=== PATIENT | male | born 1960 | race Caucasian/White ===

== ENCOUNTER → 2020-12-18 03:37 | Outpatient (CLI) | payer OTHER, SELFPAY ==
[2020-12-20 13:00] LABS: SARS-CoV-2 RNA PCR Negative
== END ==
PROVIDERS: PCP Family Medicine; Visit Provider Internal Medicine Gastroenterology
DX: Z01.812 Encounter for preprocedural laboratory examination (principal); Z20.822 Contact with and (suspected) exposure to COVID-19
CPT/HCPCS: C9803; U0003; U0005

== ENCOUNTER 2020-12-21 00:51 | Day surgery (SDC) | payer OTHER, SELFPAY ==
[2020-11-02 15:04] VITALS: BMI 25.7
[2020-12-21 07:21] VITALS: BP 121/84; PULSE 79; RESP 15; TEMP 36.1; O2SAT 99; BMI 25.6
[2020-12-21] MEDS: LACTATED RINGERS 1,000 ML 150 ML IV CONT (07:25)
--- NOTE | 2020-12-21 07:53 | WPDGICN ---
GI Consult Note Consult date/time: 12/21/20 07:53 HPI: Reason for visit colonoscopy. This very pleasant gentleman seen in consultation at the request the primary physician. Impression: Screening and surveillance colonoscopy. The patient has a history of colon polyps. HLD. Anxiety. Recommendation: Colonoscopy. History: This very pleasant gentleman's being evaluated for screening and surveillance colonoscopy. He has a history of colon polyps. GI review systems is negative. Physical examination: General: very pleasant patient in no acute distress. HEENT: Head was normocephalic sclerae is clear mouth without masses neck was supple. Heart: Rate rhythm regular without S3 or S4. Lungs: CTA. Abdomen: Soft with no guarding or rigidity. Bowel sounds were active. Neurologic: Cranial nerves 2 through 12 intact. No focal defects. No clonus. Musculoskeletal system: Revealed no joint tenderness or swelling no muscle atrophy. Extremities: Reveal no significant edema. Skin: Warm and dry with normal turgor. Mental status: intact. Patient is alert and oriented. Review of Systems Review of Systems: All systems reviewed & are unremarkable except as noted in HPI and below PMFSH Past Medical History Medical History Anxiety Hemorrhoids Hypercholesterolemia Vitamin D deficiency Surgical History Surgical History History of left knee replacement (~2007) History of total right knee replacement (~2011) Family History Family History Sibling Diabetes mellitus Father CHF (congestive heart failure) Hypertension Myocardial infarction Diabetes mellitus Heart disease Mother Breast cancer Social History Social History Smoking status: Current some day smoker Tobacco type: cigars (2) Alcohol intake: current Drinks per week: 7 Substance use: never Substance use type: does not use Living arrangements: with family Gender identity (if verbalized by the patient): Male Spiritual care concerns: No Meds Home Medications and Allergies Home Medications Medication Instructions Recorded Confirmed Type propranolol 10 mg tablet See Rx Instructions .ROUTE 09/14/20 12/21/20 Rx .COMPLEX #90 tablet Allergies Allergy/AdvReac Type Severity Reaction Status Date / Time No Known Allergies Allergy Verified 12/21/20 07:20 Vital Signs Vital Signs - 24 hr 05/27/21 07:21 Temperature 36.1 C L Pulse Rate 79 Respiratory Rate 15 Blood Pressure 121/84 Pulse Oximetry 99
--- NOTE | 2020-12-21 08:12 | WPDANESEPPF ---
Anes - Initial Pre Proc Eval Procedure: Operation Date: 12/21/20 08:30 Proposed Procedures p Screening Colonoscopy - Shine Bagley DO Date/Time: 12/21/20 08:12 Surgeon: Shine Bagley DO Pre Op Diagnosis: Neoplasm Screening Patient Data Age: 60 Gender: M Height: 5 ft 9 in Weight: 78.8 kg Last Vital Signs Temp 96.9 F L 12/21/20 07:21 Pulse 79 12/21/20 07:21 Resp 15 12/21/20 07:21 BP 121/84 12/21/20 07:21 Pulse Ox 99 12/21/20 07:21 Allergies Allergy/AdvReac Type Severity Reaction Status Date / Time No Known Allergies Allergy Verified 12/21/20 07:20 Home Medications Medication Instructions Recorded Confirmed Type propranolol 10 mg tablet See Rx Instructions .ROUTE 09/14/20 12/21/20 Rx .COMPLEX #90 tablet Patient hx anesthesia problems: none Family hx anesthesia problems: none PMFSH Past Medical History Medical History Anxiety Hemorrhoids Hypercholesterolemia Vitamin D deficiency Surgical History Surgical History History of left knee replacement (~2007) History of total right knee replacement (~2011) Family History Family History Sibling Diabetes mellitus Father CHF (congestive heart failure) Hypertension Myocardial infarction Diabetes mellitus Heart disease Mother Breast cancer Social History Social History Smoking status: Current some day smoker Tobacco type: cigars (2) Alcohol intake: current Drinks per week: 7 Substance use: never Substance use type: does not use Living arrangements: with family Gender identity (if verbalized by the patient): Male Spiritual care concerns: No Anes - Eval Final PreProcedure Day of Procedure 12/21/20 08:12 Patient weight: normal Heart: regular rate and rhythm Lungs: clear to auscultation Airway: Mallampati scale class II Neurological: alert and oriented Last oral intake: >/= 8 hours ASA classification: II Emergent: no Anesthetic plan: proceed Anesthesia type and monitoring: general GIVS and standard monitoring Informed Consent: The patient's anesthetic plan and its attendant risks and benefits were discussed with the patient/family/POA. Questions were solicited and answers provided to the satisfaction of the patient/family/POA.
[2020-12-21 08:49] VITALS: BP 97/51; PULSE 68; RESP 14; O2SAT 99
[2020-12-21 08:59] VITALS: BP 113/75; PULSE 91; RESP 20; O2SAT 100
[2020-12-21 09:09] VITALS: BP 116/91; PULSE 78; RESP 20; O2SAT 100
== END 2020-12-21 09:29 | disposition home or self-care (01) ==
PROVIDERS: PCP Family Medicine; Visit Provider Internal Medicine Gastroenterology
PROC: 0DJD8ZZ Inspection of Lower Intestinal Tract, Via Natural or Artificial Opening Endoscopic (ICD-10-PCS; CPT 45378; principal; 2020-12-21 08:30)
DX: Z12.11 Encounter for screening for malignant neoplasm of colon (principal); F41.9 Anxiety disorder, unspecified; E78.00 Pure hypercholesterolemia, unspecified; E55.9 Vitamin D deficiency, unspecified; K64.9 Unspecified hemorrhoids; F17.290 Nicotine dependence, other tobacco product, uncomplicated
CPT/HCPCS: 45378; J2704; J7120

== ENCOUNTER 2023-04-10 10:16 | Outpatient (CLI) | payer OTHER, SELFPAY ==
--- NOTE | 2023-04-10 10:23 | EST_ITS ---
Patient Info Name: Julio C Wang Age: 62 years : 1960 Gender: Male Ht: 69 in Wt: 170 lbs BSA: 1.95 m2 HR: 63 bpm BP: 127 / 82 mmHg Heart Rhythm: Sinus Rhythm Exam Date: 04/10/2023 10:39 AM Exam Location: [facility] Stress Patient Status: Outpatient Admit Date: 04/10/2023 Staff Ordering Physician: Alek Owusu DO Attending Provider: Alek Owusu DO Exercise Technologist: Karen Reddy CT Exercise Physician: Alek Owusu DO Exam Type: CA stress test treadmill Study Info Indications R07.89 - Other chest pain A treadmill exercise stress test was performed. Summary 1. 1. Negative [place] exercise stress test for ischemic ST changes by ECG criteria. 2. 2. Good functional capacity, achieving 10 METs of workload. 3. 3. Appropriate HR response to exercise. 4. 4. Appropriate HR recovery at 1 minute post exercise. 5. 5. No imaging with stress testing. 6. 6. Patient informed of the above results. Protocol: [place] Stress ECG Details Stage: REST Duration (min): 1 min : 40 sec Speed (mph): 0.0 Grade (%): 0 HR (bpm): 63 SBP (mmHg): 127 DBP (mmHg): 82 METS: --- Stage: REST Duration (min): 16 min : 34 sec Speed (mph): 0.0 Grade (%): 0 HR (bpm): 69 SBP (mmHg): 127 DBP (mmHg): 82 METS: --- Stage: STAGE 1 Duration (min): 1 min : 0 sec Speed (mph): 1.7 Grade (%): 10 HR (bpm): 97 SBP (mmHg): 127 DBP (mmHg): 82 METS: --- Stage: STAGE 1 Duration (min): 2 min : 0 sec Speed (mph): 1.7 Grade (%): 10 HR (bpm): 104 SBP (mmHg): 127 DBP (mmHg): 82 METS: --- Stage: STAGE 1 Duration (min): 3 min : 0 sec Speed (mph): 1.7 Grade (%): 10 HR (bpm): 99 SBP (mmHg): 176 DBP (mmHg): 63 METS: --- Stage: STAGE 2 Duration (min): 1 min : 0 sec Speed (mph): 2.5 Grade (%): 12 HR (bpm): 114 SBP (mmHg): 176 DBP (mmHg): 63 METS: --- Stage: STAGE 2 Duration (min): 2 min : 0 sec Speed (mph): 2.5 Grade (%): 12 HR (bpm): 122 SBP (mmHg): 176 DBP (mmHg): 73 METS: --- Stage: STAGE 2 Duration (min): 3 min : 0 sec Speed (mph): 2.5 Grade (%): 12 HR (bpm): 125 SBP (mmHg): 176 DBP (mmHg): 73 METS: --- Stage: STAGE 3 Duration (min): 1 min : 0 sec Speed (mph): 3.4 Grade (%): 14 HR (bpm): 132 SBP (mmHg): 189 DBP (mmHg): 73 METS: --- Stage: STAGE 3 Duration (min): 2 min : 0 sec Speed (mph): 3.4 Grade (%): 14 HR (bpm): 140 SBP (mmHg): 189 DBP (mmHg): 73 METS: --- Stage: STAGE 3 Duration (min): 2 min : 1 sec Speed (mph): 3.4 Grade (%): 14 HR (bpm): 140 SBP (mmHg): 189 DBP (mmHg): 73 METS: --- Stage: RECOVERY Duration (min): 0 min : 58 sec Speed (mph): 0.0 Grade (%): 0 HR (bpm): 96 SBP (mmHg): 192 DBP (mmHg): 66 METS: --- Stage: RECOVERY Duration (min): 1 min : 58 sec Speed (mph): 0.0 Grade (%): 0 HR (bpm): 72 SBP (mmHg): 192 DBP (mmHg): 66 METS:
== END 2023-04-10 10:17 | disposition home or self-care (01) ==
LOC: ANHCARD 10:17
PROVIDERS: PCP Family Medicine; Visit Provider Internal Medicine Cardiovascular Disease
DX: R07.9 Chest pain, unspecified (principal)
CPT/HCPCS: 93017

== ENCOUNTER 2023-05-20 12:21 | Emergency (ER) | payer OTHER, SELFPAY ==
--- NOTE | ~2023-05-20 | XR_ITS ---
XR hand LT min 3V 05/20/2023 13:11 Indication: Rule out or total injury to left fingers Procedure: 3 views left hand Comparison: No prior studies for comparison. Findings: Study is limited due to overlying external device covering the second, third and fourth dis na phalanges. There is a fracture of the third distal phalanx with displacement. There is possible p artial amputation of the fourth distal phalanx. Recommend repeat examinations following removal of ex ternal soft tissue. Cannot exclude foreign bodies. Impression: 1: Displaced fracture third distal phalanx with possible tuft fracture fourth distal phalanx. Soft ti ssue amputation cannot be excluded. Cannot exclude foreign body. Reviewed, dictated and finalized at location L. Impression: 1: Displaced fracture third distal phalanx with possible tuft fracture fourth d istal phalanx. Soft tissue amputation cannot be excluded. Cannot exclude foreig n body.
[2023-05-20 12:27] VITALS: BP 168/97; PULSE 91; RESP 20; TEMP 36.6; O2SAT 99
--- NOTE | 2023-05-20 12:44 | ED.WOUNDLAC ---
HPI - Wound/Laceration General Chief Complaint: Wound/Laceration <Angela Michele PA-C - Last Filed: 05/22/23 10:06> Stated Complaint: wound <TENNILLE Shea Last Filed: 05/22/23 10:06> Time Seen by Provider: 05/20/23 14:11 <TENNILLE Shea Last Filed: 05/22/23 10:06> Source: patient <TENNILLE Shea Last Filed: 05/22/23 10:06> Mode of arrival: ambulatory <TENNILLE Shea Last Filed: 05/22/23 10:06> Limitations: no limitations <TENNILLE Shea Last Filed: 05/22/23 10:06> History of Present Illness HPI narrative: This is a 62-year-old male that presents to the emergency department for left hand laceration sustained just prior to arrival. Reports lacerations to his left second third and fourth fingers. Reports bleeding and pain to the areas. He is up-to-date on tetanus. Denies decreased range of motion or numbness. <Angela Michele PA-C - Last Filed: 05/22/23 10:06> Related Data Allergies/Adverse Reactions: Allergies Allergy/AdvReac Type Severity Reaction Status Date / Time No Known Allergies Allergy Verified 05/20/23 14:01 <Angela Michele PA-C - Last Filed: 05/22/23 10:06> Review of Systems Review of Systems: CONSTITUTIONAL: Denies fever SKIN: Reports laceration MUSCULOSKELETAL: Reports joint pain, and myalgia. NEUROLOGIC: Denies numbness <Angela Mcihele PA-C - Last Filed: 05/22/23 10:06> All systems reviewed & are unremarkable except as noted in HPI and below <TENNILLE Shea Last Filed: 05/22/23 10:06> [facility] Past Medical History Medical History: Medical History Anxiety Hemorrhoids Hypercholesterolemia RLS (restless legs syndrome) Vitamin D deficiency <Angela Michele PA-C - Last Filed: 05/22/23 10:06> Surgical History Surgical History: Surgical History History of left knee replacement (~2007) History of total right knee replacement (~2011) <TENNILLE Shea Last Filed: 05/22/23 10:06> Family History Family History: Family History Sibling Diabetes mellitus Father CHF (congestive heart failure) Hypertension Myocardial infarction Diabetes mellitus Heart disease Mother Breast cancer <TENNILLE Shea Last Filed: 05/22/23 10:06> Social History Social History: Social History Smoking status: Former smoker (cigars) Tobacco type: cigars Smoking end date: 02/25/22 Alcohol intake: current Drinks per week: 7 Alcohol use details: Beer, [place] Substance use: never Substance use type: does not use Lack of Transportation: No Lack of Food: Never True Current Housing: I Have Housing Concerned About Future Housing: No Difficulty Paying Gas/Electric Bills: No Difficulty Paying for Meds: No Currently Unemployed: No Education: Master's Degree or Higher Difficulty w/ Childcare or Family Care: No Living arrangements: with family Occupation/Education: occupation 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 HEAD: Normocephalic, atraumatic. EYES: EOMI. EXTREMITIES: Normal range of motion. Left second third and fourth fingers with nail avulsions SKIN: Warm, dry, no rash. NEURO: No focal deficits. Alert and oriented x3. PSYCH: Normal mood and affect <Angela Michele PA-C - Last Filed: 05/22/23 10:06> Course Course Emergency Course: 62-year-old male present emerged department fo
--- NOTE | 2023-05-20 12:53 | PC.NURSE ---
Pt states he is an established pt with Dr. Chavez for hand
[2023-05-20] MEDS: LIDOCAINE HCL 1% LOCAL INJ 10 ML VIAL INFILTRATE (15:10)
--- NOTE | 2023-05-20 16:05 | ED.GENADULT ---
HPI - General Adult General Chief complaint: Wound/Laceration Stated complaint: wound Time Seen by Provider: 05/20/23 14:11 Source: patient Mode of arrival: ambulatory Limitations: no limitations History of Present Illness HPI narrative: 62-year-old male presented the emergency department for evaluation of injuries to his left second third and fourth fingers. Related Data Allergies Allergy/AdvReac Type Severity Reaction Status Date / Time No Known Allergies Allergy Verified 05/20/23 14:01 [facility] Past Medical History Medical History Anxiety Hemorrhoids Hypercholesterolemia RLS (restless legs syndrome) Vitamin D deficiency Surgical History Surgical History History of left knee replacement (~2007) History of total right knee replacement (~2011) Family History Family History Sibling Diabetes mellitus Father CHF (congestive heart failure) Hypertension Myocardial infarction Diabetes mellitus Heart disease Mother Breast cancer Social History Social History Smoking status: Former smoker (cigars) Tobacco type: cigars Smoking end date: 02/25/22 Alcohol intake: current Drinks per week: 7 Alcohol use details: Beer, [place] Substance use: never Substance use type: does not use Lack of Transportation: No Lack of Food: Never True Current Housing: I Have Housing Concerned About Future Housing: No Difficulty Paying Gas/Electric Bills: No Difficulty Paying for Meds: No Currently Unemployed: No Education: Master's Degree or Higher Difficulty w/ Childcare or Family Care: No Living arrangements: with family Occupation/Education: occupation 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 Gender identity (if verbalized by the patient): Male Sexual Orientation (if Verbalized by the Patient): Straight or Heterosexual Spiritual care concerns: No Course Vital Signs Vital signs: Vital Signs Temperature 97.9 F 05/20/23 12:27 Pulse Rate 91 05/20/23 12:27 Respiratory Rate 20 05/20/23 12:27 Blood Pressure 168/97 H 05/20/23 12:27 Pulse Oximetry 99 05/20/23 12:27 Oxygen Delivery Room Air 05/20/23 12:27 Temperature 97.9 F 05/20/23 12:27 Pulse Rate 91 05/20/23 12:27 Respiratory Rate 20 05/20/23 12:27 Blood Pressure 168/97 H 05/20/23 12:27 Pulse Oximetry 99 05/20/23 12:27 Oxygen Delivery Room Air 05/20/23 12:27 Medical Decision Making Vital Signs Vital Signs: Vital Signs Temperature 97.9 F 05/20/23 12:27 Pulse Rate 91 05/20/23 12:27 Respiratory Rate 20 05/20/23 12:27 Blood Pressure 168/97 H 05/20/23 12:27 Pulse Oximetry 99 05/20/23 12:27 Oxygen Delivery Room Air 05/20/23 12:27 Temperature 97.9 F 05/20/23 12:27 Pulse Rate 91 05/20/23 12:27 Respiratory Rate 20 05/20/23 12:27 Blood Pressure 168/97 H 05/20/23 12:27 Pulse Oximetry 99 05/20/23 12:27 Oxygen Delivery Room Air 05/20/23 12:27 Discharge Plan Discharge Clinical Impression: Avulsion of fingernail of left hand, Open fracture of tuft of distal phalanx of finger Patient Disposition: Home, Self-Care Condition: Stable Instructions: Antibiotic Form, Laceration (ED), Skin Avulsion (ED) Additional Instructions: Antibiotic as directed until completed. Ibuprofen for pain control and [place] as needed for additional pain control. Continue have close follow-up with Dr. Argueta as scheduled. If you have any worsening symptoms please call or return to the emergency department. Prescriptions: New cephalexin 500 mg capsule 500 mg PO Q8H 7 Days Qty: 21 0RF hydrocodone-acetaminophen 5-325 mg tablet 1 tablet PO Q12H PRN (Reason: pain) Qty: 14 0RF No Action propranolol 10 mg table
[2023-05-20] MEDS: HYDROmorphone HCL INJ (*CRX) 1 MG/ML SYR IM (16:18)
[2023-05-20] MEDS: CEPHALEXIN 500 MG CAPSULE PO (16:19)
[2023-05-20 16:27] VITALS: BP 147/84; PULSE 94; RESP 20; O2SAT 98
== END 2023-05-20 16:28 | disposition home or self-care (01) ==
PROVIDERS: Emergency Provider Emergency Medicine; PCP Family Medicine
DX: S62.635B Displaced fracture of distal phalanx of left ring finger, initial encounter for open fracture (principal); W31.89XA Contact with other specified machinery, initial encounter
CPT/HCPCS: 73130; 96372; 99283; A9270; J1170

== ENCOUNTER 2023-07-27 11:23 | Emergency (ER) | payer OTHER, SELFPAY ==
[2023-07-27 11:44] VITALS: BP 126/92; PULSE 81; RESP 20; TEMP 36.6; O2SAT 98
--- NOTE | 2023-07-27 11:48 | ED.URI ---
HPI - URI/Sore Throat General Chief Complaint: Upper Respiratory Infection Stated Complaint: COUGH/CONGESTION Time Seen by Provider: 07/27/23 11:48 Source: patient Mode of arrival: ambulatory Limitations: no limitations History of Present Illness HPI Narrative: 63-year-old male presents with complaint of cough, runny nose, chest congestion for 3 weeks. Patient states he has tried Mucinex but not consistently taking qnee-tob-afantro medications to treat symptoms. Afebrile. Denies shortness of breath but does report some chest congestion causing chest heaviness. Speaking in full sentences. Has not seen his primary care physician for the symptoms. All systems reviewed and negative except as noted above. Related Data Allergies Allergy/AdvReac Type Severity Reaction Status Date / Time No Known Allergies Allergy Verified 07/27/23 11:49 Review of Systems Review of Systems: CONSTITUTIONAL: Denies fever, chills, or sweats. EYES: Denies visual changes, redness, or discharge. ENT: Reports rhinorrhea. Denies congestion, sore throat, or otalgia. CARDIOVASCULAR: Denies chest pain, palpitations, or edema. RESPIRATORY: Reports cough, chest congestion. Denies dyspnea. GASTROINTESTINAL: Denies abdominal pain, nausea, vomiting, or diarrhea. GENITOURINARY: Denies dysuria or hematuria. SKIN: Denies rash or itching. MUSCULOSKELETAL: Denies back pain, joint pain, or myalgia. NEUROLOGIC: Denies headache, numbness, or weakness. PSYCHIATRIC: Denies anxiety or depression. All other systems reviewed are negative, except as documented in HPI. [facility] Past Medical History Medical History Anxiety Hemorrhoids Hypercholesterolemia RLS (restless legs syndrome) Vitamin D deficiency Surgical History Surgical History History of left knee replacement (~2007) History of total right knee replacement (~2011) Family History Family History Sibling Diabetes mellitus Father CHF (congestive heart failure) Hypertension Myocardial infarction Diabetes mellitus Heart disease Mother Breast cancer Social History Social History Smoking status: Former smoker (cigars) Tobacco type: cigars Smoking end date: 02/25/22 Alcohol intake: current Drinks per week: 7 Alcohol use details: Beer, [place] Substance use: never Substance use type: does not use Lack of Transportation: No Lack of Food: Never True Current Housing: I Have Housing Concerned About Future Housing: No Difficulty Paying Gas/Electric Bills: No Difficulty Paying for Meds: No Currently Unemployed: No Education: Master's Degree or Higher Difficulty w/ Childcare or Family Care: No Living arrangements: with family Occupation/Education: occupation 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 There is no relevant family history pertinent to the presenting complaint. Exam Narrative: GENERAL: This is a well-nourished, well-developed patient, in no apparent distress. HEAD: normocephalic, atraumatic. EYES: PERRL. Sclera clear/white. Vision is grossly intact. EARS: External ears normal, auditory canals clear and without drainage, TMs normal without perforation. Hearing grossly intact. NOSE: External nose normal with no obvious nasal discharge, nares without redness, no rhinorrhea. THROAT: Mucous membranes moist, posterior pharynx clear. NECK: Neck supple, non-tender without lymphadenopathy, masses or thyromegaly. CARDIOVASCULAR: Regular rate and rhythm without
== END 2023-07-27 12:10 | disposition home or self-care (01) ==
PROVIDERS: Emergency Provider Nurse Practitioner Family; PCP Family Medicine
DX: J22 Unspecified acute lower respiratory infection (principal); E55.9 Vitamin D deficiency, unspecified; E78.00 Pure hypercholesterolemia, unspecified; Z96.653 Presence of artificial knee joint, bilateral
CPT/HCPCS: 99213; G0463

== ENCOUNTER 2023-08-29 09:00 | Outpatient (RCR) | payer OTHER, SELFPAY ==
--- NOTE | 2023-08-15 11:55 | OTOPEVAL1 ---
Assessment and note entered by Tong Castro, OTR/Jorge Luis, CHT Evaluation Information 08/15/23 Subjective Information Pt injured his left 2nd, 3rd, and 4th fingers on 05/20/23 with a router. He had a fracture to the 3rd distal phalanx, which was treated conservatively with a splint. He is right handed. He reports residual weakness, pain, and tightness. 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 Difficulties making a tight fist. Reported Pain Level Pain Score - (L) hand 3/10 with strenuous gripping 0/10 at rest Assessment OT Clinical Summary Patient referred to OT with residual left hand stiffness and weakness following an injury ~3 months ago. Today he was issued active/passive ROM and strengthening HEP. After a round of the HEP his hand improved to normal limits with ROM and patient reports feeling a big difference. Plan for 1 follow up session in about 2 weeks to assess readiness for discharge. Plan of Care Interventions Therapeutic Exercise,Manual Therapy,Paraffin OT Services Indicated Yes Treatment Frequency and Follow up in 2 weeks. Duration These treatments will address the objective and functional deficits as defined above. The patient will be advanced safely and appropriately in order for the patient to progress towards his/her prior level of function. Additional exercises will be introduced and as well as a comprehensive home exercise program upon discharge, if needed, ?to ensure carryover of functional gains achieved in the clinic. This treatment plan has been reviewed and agreement upon by the patient.
--- NOTE | 2023-08-29 09:36 | OTOPDC ---
Assessment and note entered by Tong Castro, ASIYA/Jorge Lius, T Discharge Summary 08/29/2023 Diagnosis Stiff fingers left hand Subjective Information Patient has been working on his HEP x2 weeks. He reports that his flexibility temporarily increases and feels that 15 minutes later it goes back to how it was. After seeing his measurements he reports he feels more encouraged that his is making progress. Measurements today: Patient is able to make a composite fist as well as a hook fist with no gaps between the finger tips and the DPC. 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 At the initial eval (08/15/23) Tip to DPC measurements: II: 1.5 cm gap III: 2 cm gap IV: 1.5 cm gap V: 1 cm gap Assessment OT Clinical Summary Patient referred to OT with residual left hand stiffness and weakness following an injury ~3 months ago. He was issued ROM and strengthening HEP x2 weeks ago and presents today for follow up. Patient's ROM and strength have returned to normal limits. He reports residual stiffness for which it was recommend that he continue the HEP. No further skilled OT indicated at this time. D/C OT. Plan of Care OT Services Indicated No
== END 2023-08-29 09:59 | disposition home or self-care (01) ==
LOC: ANHOT 09:00
PROVIDERS: PCP Family Medicine; Visit Provider Plastic Surgery
DX: M25.642 Stiffness of left hand, not elsewhere classified (principal)
CPT/HCPCS: 97110; 97165

== ENCOUNTER 2023-12-18 08:14 | Outpatient (CLI) | payer OTHER, SELFPAY | END 2023-12-18 08:15 | disposition home or self-care (01) | LOC: ANHSURGERY 08:17 | PROVIDERS: PCP Family Medicine; Visit Provider Surgery | DX: K40.90 Unilateral inguinal hernia, without obstruction or gangrene, not specified as recurrent (principal); Z01.818 Encounter for other preprocedural examination | CPT/HCPCS: 36415; 86850; 86900; 86901 ==

== ENCOUNTER 2023-12-24 01:07 | Day surgery (SDC) | payer OTHER, SELFPAY ==
[2023-12-15 11:53] VITALS: BMI 25.9
--- NOTE | 2023-12-15 11:59 | PC.NURSE ---
Report to the Outpatient Waiting Room, entrance under the green pavilion located off [facility], at time _0830_ on date _[id number]_. Planned Procedure Time: _1030_. Time changes happen often and if your time is changed the preop area will call you the afternoon before. - You and your visitor will be asked to self-screen and do not enter if you have any COVID symptoms. - A mask is optional within the hospital at this time. Patients may have clear liquids (water, carbonated beverages, clear teas, apple juice) until 3 hours prior to surgery with a maximum of 20 ounces. - No food from midnight until time of surgery Take the following medications with a SIP of water the morning of surgery: __None DO NOT STOP ANY OF YOUR OTHER PRESCRIPTION MEDICATIONS PRIOR TO SURGERY ?EXCEPT THE FOLLOWING Medications to discontinue per physician __Vitamins and supplements Date to take last eaiw__[phone] Says was told by office to stop meloxicam. Please no make-up, nail kazakh, hairspray, perfume, deodorant, or body powder the day of surgery. No jewelry (including any body piercings) or valuables the day of surgery, leave them at home. Please take a shower or bath the night before, or the morning of, surgery with an antibacterial soap. Wear comfortable, loose fitting clothing. - Jewelry must be removed prior to entering the operating room. Rings and piercings that are not removed may be cut off. - The hospital will not accept responsibility for valuables. - Please leave all valuables, including medications, at home the day of surgery. If you are going home after surgery, a licensed full service vending driver must drive you home. - NO public transportation without another adult if you receive anesthesia. - We recommend that an adult stay with you for 24 hours following discharge. - We also recommend that you do not drive, make important decision, drink alcoholic beverages, or take any drugs that were not prescribed by your health care provider for at least 24 hours after your discharge time. Follow any additional instructions given to you from your surgeon. If you or anyone in your household have experienced Covid symptoms in the past week, please notify your surgeon or the nurse liaison at the phone number below for possible testing. Telephone instructions given to __Joe__and asked if any additional questions and then verbalized understanding. Patient advised to call surgeon office or pre surgery nurse liaison [phone] if any additional questions.
[2023-12-24] VITALS (9 sets, daily range): BP systolic 105–140; BP diastolic 67–83; PULSE 71–92; RESP 14–20; TEMP 36–36.2; O2SAT 98–100
[2023-12-24] MEDS: ACETAMINOPHEN 500 MG TABLET 1000 MG PO (09:30)
[2023-12-24] MEDS: KETOROLAC 15 MG/ML VIAL (*BKC) IV PUSH ×2 (09:31→12:59)
[2023-12-24] MEDS: LACTATED RINGERS 1,000 ML 30 ML IV CONT ×2 (09:40→13:38)
--- NOTE | 2023-12-24 11:00 | WPDHPUPDATE1 ---
History and Physical Update Update Date/Time: 12/24/23 11:00 History and Physical has been reviewed, including an updated exam of the patient. There are NO changes in the patient's condition. Risks, benefits, and alternatives have been discussed and questions answered. Patient agrees to proceed with procedure.
--- NOTE | 2023-12-24 11:04 | WPDANESEPPF ---
Anes - Initial Pre Proc Eval Procedure: Operation Date: 12/24/23 10:30 Proposed Procedures p Laparoscopic Right Inguinal Hernia Repair with Mesh, Davinci Assisted - Forest Valencia MD Date/Time: 12/24/23 11:04 Surgeon: Forest Valencia MD Pre Op Diagnosis: Rt Ing Hernia Patient Data Age: 63 Gender: M Height: 1.75 m Weight: 79.8 kg Last Vital Signs Temp 96.8 F L 12/24/23 08:58 Pulse 76 12/24/23 08:58 Resp 16 12/24/23 08:58 BP 107/75 12/24/23 08:58 Pulse Ox 99 12/24/23 08:58 O2 Del Method Room Air 12/24/23 08:58 Allergies Allergy/AdvReac Type Severity Reaction Status Date / Time No Known Allergies Allergy Verified 12/24/23 09:01 Home Medications Medication Instructions Recorded Confirmed Type propranolol 10 mg tablet 10 mg PO DAILY PRN anxiety. 10/14/23 12/24/23 History Essential Fatty Acids 2 tab-cap PO DAILY 12/15/23 12/24/23 History ascorbic acid (vitamin C) 500 mg 500 mg PO DAILY 12/15/23 12/24/23 History tablet (Vitamin C) cholecalciferol (vitamin D3) 125 125 mcg PO DAILY 12/15/23 12/24/23 History mcg (5,000 unit) tablet (Vitamin D3) meloxicam 15 mg tablet 15 mg PO DAILY PRN Pain 12/15/23 12/24/23 History vitamin B complex 1 tablet PO DAILY 12/15/23 12/24/23 History Patient hx anesthesia problems: none Family hx anesthesia problems: none Results Review: All pre-operative results and documents have been reviewed as part of the pre-operative evaluation. [facility] Past Medical History Medical History Anxiety Hemorrhoids Hypercholesterolemia RLS (restless legs syndrome) Vitamin D deficiency Surgical History Surgical History History of left knee replacement (~2007) History of tonsillectomy History of total right knee replacement (~2011) Family History Family History Sibling Diabetes mellitus Father CHF (congestive heart failure) Hypertension Myocardial infarction Diabetes mellitus Heart disease Mother Breast cancer Social History Social History (Updated 12/09/23 @ 09:02 by Rosangela Croft MA) Smoking status: Never smoker Tobacco type: cigars Smoking end date: 07/28/21 Alcohol intake: current Drinks per week: 7 Alcohol use details: Beer, [place] Substance use: never Substance use type: does not use Do You Feel Safe in your Home?: Yes Lack of Transportation: No Lack of Food: Never True Current Housing: I Have Housing Concerned About Future Housing: No Difficulty Paying Gas/Electric Bills: No Difficulty Paying for Meds: No Currently Unemployed: No Education: Master's Degree or Higher Difficulty w/ Childcare or Family Care: No Living arrangements: with family Occupation/Education: occupation 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 Gender identity (if verbalized by the patient): Male Sexual Orientation (if Verbalized by the Patient): Straight or Heterosexual Spiritual care concerns: No Anes - Eval Final PreProcedure Day of Procedure 12/24/23 11:04 Patient weight: normal Heart: regular rate and rhythm Lungs: clear to auscultation Airway: Mallampati scale class II Neurological: alert and oriented Last oral intake: >/= 8 hours ASA classification: II Emergent: no Anesthetic plan: proceed Anesthesia type and monitoring: general ETT and standard monitoring Results Review: All pre-operative results and documents have been reviewed as part of the pre-operative evaluation. Informed Consent: The patient's anesthetic plan and its attendant risks and benefits were discussed with the patient/family/POA. Questions were solicited and answers provided to the satisfaction of the patient/family/POA.
[2023-12-24] MEDS: ceFAZolin 2 GM/D5W 50 ML 2 GM/50 ML BAG IVPB (11:33)
[2023-12-24] MEDS: LIDO 1%/EPINEPHRINE 1:100,000 20 ML VIAL 30 ML INFILTRATE (12:09)
[2023-12-24] MEDS: BUPivacaine HCL 0.5% PF 30 ML VIAL INFILTRATE (12:09)
--- NOTE | 2023-12-24 13:32 | W.PM.PROC2 ---
Procedure Note - Detailed Date of Procedure 12/24/23 Pre-op Diagnosis Reducible right inguinal hernia Post-op Diagnosis Same (Reducible direct right inguinal hernia) Procedure Performed Robotic assisted laparoscopic right inguinal hernia repair with Bard 3D mid weight mesh Surgeon Forest Valencia MD Librarian Specialist Shine Sloan, SARKIS Anesthesia General Indications Patient is a 63-year-old gentleman presented with a right groin bulge which is enlarging. It is causing some discomfort. He had a reducible right hernia on exam and presents now for a robotic assisted laparoscopic right inguinal hernia repair with mesh. Findings Patient moderate large reducible direct right inguinal hernia. No evidence of an indirect component. No incarcerated contents. Small cord lipoma. Description of Procedure After informed consent was obtained patient brought to the operating room was placed supine position and general endotracheal anesthesia was administered. The abdomen bilateral groin regions were then prepped and draped usual sterile fashion. A time-out was then performed correctly identifying the patient as well as procedure to be performed verifying the site marking. He was given perioperative IV antibiotics. I then entered the abdomen left upper quadrant utilizing a 10mm Optiview port. Once inside the abdomen insufflated to adequate pneumoperitoneum of 15mmHg of CO2. Evaluation of the right groin region revealed a direct right inguinal hernia which was moderate in size. There is no incarcerated contents. No evidence of indirect defect. The left groin revealed no evidence of a inguinal hernia. I placed additional robotic trocar ports across the mid abdominal region under direct visualization. I then had Liza robot brought to the patient's bedside and it was docked and the robotic arms were attached to the robotic ports. Robotic instruments were then advanced into the abdomen under direct visualization. I then scrubbed out the procedure sent down robotic console for the dissection robotically. I 1st started with the robotic hook cautery and made a preperitoneal flap starting anterior medial to the right anterior superior iliac spine extending immediately a across the right median umbilical ligament. I continued my dissection of the peritoneal flap distally and I dissected medially to identify the pubic tubercle and the pubic symphysis. I dissected the bladder off of the pubic symphysis and I dissected into the space of Retzius for several cm. I then dissected peritoneum off of the vas deferens and testicular vessels which were identified and preserved without injury. A small cord lipoma was dissected free of the cord and resected and discarded. There is no evidence of an indirect defect. It was then dissected up onto the psoas muscle proximal until we were far beyond the separation between vas deferens and testicular vessels. I dissected a small amount of fatty tissue out of the femoral space. The preperitoneal fat was dissected out of the direct defect and it was resected and removed from the abdomen discarded. The direct defect was then closed utilizing a running absorbable 2-0 PDS V lock suture. The pseudo sac and attenuated fibers of the cast has fascia were imbricated with the closure of the direct defect. I then chose a piece of Bard 3D mid weight mesh oriented for the right side. He extended piece measuring 17cm in transverse width by 12cm in vertical length was chosen. It was placed into the abdomen through the 10mm left upper quadrant bedside trocar port site and oriented into the dissected space. A cover the whole myopectineal orifice to include the direct, indirect, and femoral spaces. I then secured the mesh to the tissues around the pubic tubercle utilizing 2-0 Vicryl sutures. Lateral part of the mesh was secured to the muscle fibers anterior and medial to the right anterior superior iliac spine. When I pulled up the peritoneal flap the proximal edg
[2023-12-24] MEDS: oxyCODONE HCL (*CRX) 5 MG TAB IR PO (14:25)
[2023-12-24] MEDS: fentaNYL CITRATE INJ (*CRX) 100 MCG/2 ML VIAL 25 MCG IV PUSH (14:54)
== END 2023-12-24 15:58 | disposition home or self-care (01) ==
PROVIDERS: PCP Family Medicine; Visit Provider Surgery
PROC: 8E0Y4CZ Robotic Assisted Procedure of Lower Extremity, Percutaneous Endoscopic Approach (ICD-10-PCS; CPT 49650; principal; 2023-12-24 10:30)
DX: K40.90 Unilateral inguinal hernia, without obstruction or gangrene, not specified as recurrent (principal); E55.9 Vitamin D deficiency, unspecified; F41.9 Anxiety disorder, unspecified; Z87.891 Personal history of nicotine dependence
CPT/HCPCS: 49650; S2900; A9270; C1781; J0690; J1100; J1885; J2250; J2371; J2405; J2704; J3010; J7030; J7120

== ENCOUNTER 2024-01-19 16:55 | Emergency (ER) | payer OTHER, SELFPAY ==
[2024-01-19 17:02] VITALS: BP 120/90; PULSE 92; RESP 22; TEMP 36.8; O2SAT 99
--- NOTE | 2024-01-19 17:04 | ED.GENADULT ---
HPI - General Adult General Stated complaint: COUGH/SORE THROAT/SOB/RUNNY NOSE Time Seen by Provider: 01/19/24 17:05 Source: patient, RN notes reviewed and old records reviewed Mode of arrival: ambulatory Limitations: no limitations History of Present Illness HPI narrative: Patient reports 2 day history of cough, congestion, sore throat. He denies any fever, chills, sweats. He reports that he has tested himself for COVID 2 times at home, both tests have been negative. He does report that he perform the test properly. He has not been taking anything for his symptoms. He voices no other concerns or complaints at this time Related Data Home Medications Medication Instructions Recorded Confirmed propranolol 10 mg tablet 10 mg PO DAILY PRN anxiety. 10/14/23 01/19/24 ascorbic acid (vitamin C) 500 mg 500 mg PO DAILY 12/15/23 01/19/24 tablet (Vitamin C) cholecalciferol (vitamin D3) 125 125 mcg PO DAILY 12/15/23 01/19/24 mcg (5,000 unit) tablet (Vitamin D3) vitamin B complex 1 tablet PO DAILY 12/15/23 01/19/24 Allergies Allergy/AdvReac Type Severity Reaction Status Date / Time No Known Allergies Allergy Verified 01/07/24 14:23 Review of Systems Review of Systems: All systems reviewed & are unremarkable except as noted in HPI and below Constitutional: Constitutional: Reports no additional constitutional complaints ENT: Reports system reviewed and no additional complaints, except as documented Cardiovascular: Cardiovascular: Reports no additional cardiovascular complaints Respiratory: Respiratory: Reports no additional respiratory complaints Gastrointestinal: Gastrointestinal: Reports no additional gastrointestinal complaints [facility] Past Medical History Medical History Anxiety Hemorrhoids Hypercholesterolemia RLS (restless legs syndrome) Vitamin D deficiency Surgical History Surgical History History of left knee replacement (~2007) History of tonsillectomy History of total right knee replacement (~2011) Hx of inguinal hernia repair Robotic assisted laparoscopic right inguinal hernia repair with Bard 3D mid weight mesh 12/24/23 Family History Family History Sibling Diabetes mellitus Father CHF (congestive heart failure) Hypertension Myocardial infarction Diabetes mellitus Heart disease Mother Breast cancer Social History Social History Smoking status: Never smoker Tobacco type: cigars Smoking end date: 07/28/21 Alcohol intake: current Drinks per week: 7 Alcohol use details: Beer, [place] Substance use: never Substance use type: does not use Do You Feel Safe in your Home?: Yes Lack of Transportation: No Lack of Food: Never True Current Housing: I Have Housing Concerned About Future Housing: No Difficulty Paying Gas/Electric Bills: No Difficulty Paying for Meds: No Currently Unemployed: No Education: Master's Degree or Higher Difficulty w/ Childcare or Family Care: No Living arrangements: with family Occupation/Education: occupation 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 There is no relevant family history pertinent to the patient complaint. Exam Const: General: cooperative, no acute distress, alert and awake Orientation/consciousness: oriented to person, oriented to place and oriented to time HENMT: Head: normal to inspection Ears: TM's normal bilaterally Face/Nose/Sinus: Normal external nose present and Normal toan
== END 2024-01-19 17:19 | disposition home or self-care (01) ==
PROVIDERS: Emergency Provider Nurse Practitioner Family; PCP Family Medicine
DX: B34.9 Viral infection, unspecified (principal); E78.00 Pure hypercholesterolemia, unspecified; G25.81 Restless legs syndrome; E55.9 Vitamin D deficiency, unspecified; Z96.653 Presence of artificial knee joint, bilateral
CPT/HCPCS: 99211; G0463